=== PATIENT | female | born 1975 | race Caucasian/White ===

== ENCOUNTER 2018-05-30 10:01 | Emergency (ER) | payer SELFPAY ==
[~2018-05-30] VITALS: Ht 152.4 cm; Wt 63.5 kg
[2018-05-30 10:16] VITALS: Ht 152.4 cm; Wt 63.5 kg
[2018-05-30 11:25] LABS: BASOPHIL % 1.1 % (0-2); PLATELET COUNT 347 x10^3mcL (130-400)
[2018-05-30 11:32] LABS: RED CELL DISTRIBUTION WIDTH 16.6 % (11.5-14.5)
[2018-05-30 12:15] VITALS: BP 132/84
[2018-05-30 12:15] LABS: CALCIUM 8.1 mg/dL (8.5-10.1); CARBON DIOXIDE 27.3 mmol/L (21-32); CREATININE SERUM 0.7 mg/dL (0.6-1.0); GFR1 > 60 mL/min; GLUCOSE SERUM 109 mg/dL (74-106)
[2018-05-30 12:25] LABS: CHLORIDE SERUM 107 mmol/L (98-107); POTASSIUM SERUM 4.3 mmol/L (3.5-5.1); SODIUM SERUM 140 mmol/L (136-145)
== END 2018-05-30 12:15 | disposition short-term general hospital (02) ==
LOC: ED 10:01
PROVIDERS: Specialist
DX: S81.011A Laceration without foreign body, right knee, initial encounter (principal); W01.198A Fall on same level from slipping, tripping and stumbling with subsequent striking against other object, initial encounter; Y93.89 Activity, other specified; Y92.89 Other specified places as the place of occurrence of the external cause; Y99.8 Other external cause status
CPT/HCPCS: J0690; Q0092

== ENCOUNTER 2020-06-24 08:03 | Emergency (ER) | payer OTHER ==
[~2020-06-24] VITALS: Ht 152.4 cm; Wt 73.5 kg
[2020-06-24 08:07] VITALS: Ht 152.4 cm; Wt 73.5 kg
[2020-06-24 09:53] VITALS: BP 127/88
== END 2020-06-24 09:53 | disposition home or self-care (01) ==
LOC: ED 08:03
DX: M25.511 Pain in right shoulder (principal)

== ENCOUNTER 2020-07-04 14:59 | Emergency (ER) | payer OTHER ==
[~2020-07-04] VITALS: Ht 152.4 cm; Wt 73.5 kg
[2020-07-04 15:25] VITALS: Ht 152.4 cm; Wt 73.5 kg
[2020-07-04 16:56] VITALS: BP 118/76
== END 2020-07-04 16:56 | disposition home or self-care (01) ==
LOC: ED 14:59
DX: H10.33 Unspecified acute conjunctivitis, bilateral (principal); Z98.890 Other specified postprocedural states